=== PATIENT | male | born 1955 | race Caucasian/White ===

== ENCOUNTER 2024-11-30 09:40 | Day surgery (SDC) | payer BC ==
[~2024-11-30 09:40] MED LIST: Lactated Ringers 1,000 ML IV SCH
[2024-11-30] MEDS: Lactated Ringers 1,000 ML IV SCH (09:56)
[2024-11-30] MEDS ORDERED: Propofol 200 MG/20 ML SDV ONE ×2 (10:32→10:42)
[2024-11-30] MEDS ORDERED: fentaNYL 100 MCG/2 ML SDV ONE (10:32)
[2024-11-30] MEDS ORDERED: Simethicone Drops 40 MG/0.6 ML 30 ML Bottle ONE (10:55)
== END 2024-11-30 12:08 | disposition home or self-care (01) ==
LOC: VM.SDS 09:40
PROVIDERS: ATTEND Surgery
DX: Z12.11 Encounter for screening for malignant neoplasm of colon (principal); Z86.0100 Personal history of colon polyps, unspecified; I10 Essential (primary) hypertension; E03.9 Hypothyroidism, unspecified
CPT/HCPCS: 45378; A9270; J2704; J3010; J7120; 00812; 99100